=== PATIENT | male | born 1970 | race Caucasian/White ===

== ENCOUNTER 2022-07-05 09:00 | Outpatient (CLI) | payer BC, SELFPAY ==
[2022-07-05 15:43] LABS: Chloride* 108 mmol/L (96-114)
[2022-07-05 15:46] LABS: Calcium* 9.5 mg/dL (8.4-10.6); Creatinine* 0.7 mg/dL (0.5-1.5); Estimated Glomerular Filt Rate 112 ml/min
[2022-07-05 15:57] LABS: Potassium* 4.1 mmol/L (3.6-5.1); Sodium* 142 mmol/L (135-149)
[2022-07-05 16:00] LABS: Glucose* 184 mg/dL (60-115)
[2022-07-05 16:08] LABS: Blood Urea Nitrogen* 16 mg/dL (7-30); Carbon Dioxide* 23 mmol/L (20-32)
[2022-07-08 11:43] LABS: Testosterone, Adult Male 426 ng/dL (300-890)
== END 2022-07-05 09:01 | disposition home or self-care (01) ==
PROVIDERS: PCP Family Medicine; Visit Provider Family Medicine
DX: E10.9 Type 1 diabetes mellitus without complications (principal); R79.89 Other specified abnormal findings of blood chemistry; I10 Essential (primary) hypertension; E23.0 Hypopituitarism
CPT/HCPCS: 80048; 84403

== ENCOUNTER 2022-12-13 12:13 | Outpatient (CLI) | payer BC, SELFPAY ==
[2022-12-13 16:13] LABS: Chloride* 107 mmol/L (96-114)
[2022-12-13 16:14] LABS: Potassium* 4.5 mmol/L (3.6-5.1); Sodium* 135 mmol/L (135-149)
[2022-12-13 16:16] LABS: Alanine Aminotransferase* 26 U/L (4-50); Carbon Dioxide* 18 mmol/L (20-32); Cholesterol* 235 mg/dL (90-199); Creatinine* 0.8 mg/dL (0.5-1.5); Estimated Glomerular Filt Rate 107 ml/min
[2022-12-13 16:17] LABS: Blood Urea Nitrogen* 16 mg/dL (7-30); Calcium* 9.8 mg/dL (8.4-10.6); Glucose* 184 mg/dL (60-115); HDL Cholesterol* 81 mg/dL (>=40); LDL Cholesterol Calculated 134 mg/dL (<100); Triglycerides* 100 mg/dL (40-149)
[2022-12-15 06:05] LABS: Testosterone, Adult Male 519 ng/dL (300-890)
== END 2022-12-13 12:14 | disposition home or self-care (01) ==
PROVIDERS: PCP Family Medicine; Visit Provider Family Medicine
DX: E78.5 Hyperlipidemia, unspecified (principal); I10 Essential (primary) hypertension; R79.89 Other specified abnormal findings of blood chemistry; F41.9 Anxiety disorder, unspecified; E10.42 Type 1 diabetes mellitus with diabetic polyneuropathy; F32.9 Major depressive disorder, single episode, unspecified
CPT/HCPCS: 80048; 80061; 84403; 84460

== ENCOUNTER 2023-11-08 12:41 | Outpatient (CLI) | payer MEDICARE, SELFPAY ==
--- OUTSIDE RECORDS SUMMARY | 2023-11-08 12:44 | XMS_ITS | Clinical Summary ---
Author Name Unknown Organization [facility] Address [place], [place] [address] Care Team Providers Care Assurance Auditor Name Role Phone Greyson Mercado MD Primary Care Provider Allergies Active Allergy Reactions Criticality Noted Date Comments Pregabalin Edema Medium 12/07/2015 BILATERAL LOWER EXTREMITIES Medications Medication Sig Dispensed Refills Start Date End Date Status DULoxetine (CYMBALTA) 60 mg Delayed-release capsule Take 60 mg by mouth once daily. 0 02/21/2020 Active fentaNYL 50 mcg/hr (DURAGESIC) 50 mcg/hr patch Apply 1 Patch on dry, clean, hairless skin every 48 hours 0 03/18/2020 Active gabapentin (NEURONTIN) 300 mg capsule Take 900 mg by mouth 4 times daily. 0 Active testosterone (ANDROGEL) 20.25 mg/1.25 gram (1.62 %) glpm transdermal gel Apply 2 pumps topically to clean, dry, intact skin of the shoulders and upper arms once daily. Do NOT apply to any other parts of the body. 0 Active aspirin (ECOTRIN) 81 mg enteric coated tablet Take 81 mg by mouth once daily with a meal. 0 Active buPROPion (WELLBUTRIN XL) 300 mg Extended-Release tablet 1 tab once daily 0 10/28/2020 Active oxyCODONE (ROXICODONE) 5 mg immediate release tablet Take 5 mg by mouth. TAKE 1 TABLET BY MOUTH TWICE DAILY NEEDED FOR PAIN 0 12/07/2020 Active amitriptyline (ELAVIL) 25 mg tabletIndications:I nsomnia, idiopathic Take 1 Tablet (25 mg) by mouth at bedtime. 90 tablet. 1 07/23/2021 Active celecoxib (CELEBREX) 200 mg capsuleIndications: Greater trochanteric bursitis of left hip Take 1 Capsule (200 mg) by mouth 2 times daily if needed for Pain. 60 Capsule 1 10/19/2021 Active escitalopram oxalate (LEXAPRO) 10 mg tablet Take 10 mg by mouth once daily. 0 2021 Active naloxone (NARCAN) 4 mg/actuation nasal spray ADMINISTER A SINGLE SPRAY OF NARCAN IN ONE NOSTRIL. REPEAT AFTER 3 MINUTES IF NO OR MINIMAL RESPONSE. 0 02/25/2022 Active traZODone (DESYREL) 100 mg tablet TAKE 1/2 TO 1 (ONE-HALF TO ONE) TABLET BY MOUTH AT BEDTIME 0 2021 Active rosuvastatin (CRESTOR) 10 mg tabletIndications:T ype 1 diabetes mellitus with diabetic polyneuropathy (HC) Take 1 Tablet (10 mg) by mouth once daily. 90 Tablet 07/04/2022 Active insulin lispro (HUMALOG; ADMELOG) 100 unit/mL injectionIndication s:Type 1 diabetes mellitus with diabetic polyneuropathy (HC) USE UP TO 60 UNITS DAILY VIA INSULIN PUMP 10 mL 0 07/14/2022 Active FreeStyle Ifeoma 2 SensorIndications:T ype 1 diabetes mellitus with diabetic polyneuropathy (HC) USE DIRECTED 6 Each 3 10/07/2022 Active FreeStyle Ifeoma 2 ReaderIndications:T ype 1 diabetes mellitus with diabetic polyneuropathy (HC) USE TO READ BLOOD SUGARS PER MANUFACTURERS DIRECTIONS 1 Each 0 11/01/2022 Active methylPREDNISolone (Medrol, Krishna,) 4 mg tabletIndications:L umbar radiculopathy Take by mouth as instructed per packaging. 21 Tablet 0 11/21/2022 Active lisinopriL (PRINIVIL; ZESTRIL) 10 mg tablet Take 10 mg by mouth once daily. 0 12/19/2022 Active durable medical equipment (DME)Indications:Sk in infection,Closed displaced fracture of proximal phalanx of left great toe, initial encounter SQUARED TOE POST OP CÉSAR HUGGINS REF: [phone] 1 Each 0 02/16/2023 Active tamsulosin (FLOMAX) 0.4 mg capsule tamsulosin 0.4 mg capsule 0 Active loperamide (IMODIUM) 2 mg capsuleIndications: Acute diarrhea TAKE 2 CAPSULES BY MOUTH WITH 1ST LOOSE STOOL, THEN 1 CAPSULE WITH EACH SUBSEQUENT LOOSE STOOL. MAX OF 8 CAPSULES PER 24 HOURS 360 Capsule 0 05/08/2023 Active Active Problems Problem Noted Date Diagnosed Date Hypoglycemia 07/22/2020 Kidney stone 07/11/2020 Foot drop, left foot 03/21/2020 Decreased sensation of leg 03/21/2020 Lumbar radiculopathy, acute 03/21/2020 Protrusion of lumbar intervertebral disc 020 Lumbar radiculopathy 03/19/2020 Passive suicidal ideations 03/28/2019 Type 1 diabetes mellitus wit h hyperglycemia, with long-term current use of insulin 09/21/2018 Gastroenteritis 09/21/2018 LLL pneumonia 07/29/2018 Hypoglycemia associated with diabetes 06/17/2018 LOC (loss of consciousness) 06/17/2018 AMADO (acute kidney injury) 05/12/2018 Syncope and collapse 05/12/2018 Chronic pain syndrome 05/12/2018 Altered mental status, unspecified 12/27/2017 Acute renal failure (ARF) 12/27/2017 Pneumonia of both lower lobes due to infectious organism 10/08/2017 SIRS (systemic inflammatory response syndrome) 1 Controlled substance agreement signed 11/23/2016 Overview: Diabetic Neuropathy - On Fentanyl, Tramadol, Oxycodone, and Gabapentin Issue of repeat prescription 11/23/2016 Moderate episode of recurrent major depressive d isorder 11/22/2016 Adhesive capsulitis of right shoulder 11/22/2016 Chronic pain syndrome 11/09/2016 Type 1 diabetes mellitus with diabetic polyneuro shakila 07/14/2015 Cognitive deficits 03/18/2015 Generalized anxiety disorder 12/29/2014 Hyperlipidemia 09/23/2013 ACP (advance care planning) 02/22/2012 Overview: Advance Care Plan Documents No Documents on File Impotence of organic origin 09/09/2007 Resolved Problems Problem Noted Date Diagnosed Date Resolved Date Severe episode of recurrent major depressive disorder, without psychotic features 03/27/2019 KIANA (generalized anxiety disorder) 03/27/2019 10/25/2022 Hypertension 04/26/2018 07/01/2018 Hypertension 06/29/2017 07/01/2018 Pneumonia of both lungs due to infectious organism 11/11/2016 02/14/2017 Sepsis, unspecified organism 11/11/2016 02/14/2017 Tachycardia 11/10/2016 11/22/2016 Hypoxia 11/10/2016 11/22/2016 Hypovolemia 11/10/2016 11/22/2016 Hypokalemia 11/10/2016 11/22/2016 Chest pain in adult 11/09/2016 02/15/20 17 Neuropathy 11/09/2016 11/22/2016 Campylobacter gastroenteritis 12/07/2015 10/08/2017 C. difficile colitis 12/06/2015 017 Pneumonia, organism unspecified(486) 12/05/2015 12/14/2015 Dehydration 12/05/2015 12/14/2015 Gastroenteritis 12/03/2015 12/14/2015 SIRS (systemic inflammatory response syndrome) 12/02/2015 12/14/2015 Major depressive disorder, r ecurrent episode, moderate 03/22/2015 11/22/2016 Diabetic polyneuropathy asso ciated with type 1 diabetes mellitus 03/22/2015 12/02/2015 Diabetic polyneuropathy asso ciated with diabetes mellitus due to underlying condition 02/02/2015 03/22/2015 Major depressive disorder, r ecurrent episode, severe, without mention of psychotic behavior 12/29/2014 03/22/2015 Other pain disorders related to psychological factors 12/29/2014 03/19/2015 Major depressive disorder, r ecurrent episode, severe, without mention of psychotic behavior 12/29/2014 11/22/2016 Diabetic neuropathy 08/28/2014 02/03/20 15 Hypoglycemia 04/20/2014 05/10/2014 DKA (diabetic ketoacidoses) 04/03/2014 03/19/2015 Atypical chest pain 04/03/2014 04/13/20 14 SOB (shortness of breath) 04/03/2014 Right flank pain 04/03/2014 04/13/2014 Hypokalemia 04/03/2014 04/13/2014 Medical Home 01/05/2012 03/02/2012 DIABETES MELLITUS TYPE I 09/08/199808/2015 Type I (juvenile type) diabe josé manuel mellitus without mention of complication, not stated as uncontrolled 09/08/1998 11/22/2016 Immunizations Name Administration Dates Next Due COVID-19 vaccine ([place] 30mcg/0.3mL) PF, MDV 08/23/2021,07/23/2021 DTaP 06/20/1977 Influenza Virus, Unspecified 07/07/2020 Influenza, IIV4 07/23/2021, 9,07/02/2018,2016,11/07/2016 Influenza, IIV4 (=>6mos) MDV 07/23/2020 MMR 05/24/1977 Oral Polio Vaccine 06/20/1977 Tdap 03/18/2011 Family History Medical History Relation Name Comments Good Health Father Good Health Mother Relation Name Status Comments Father Alive Mother Alive Social History Tobacco Use Types Packs/Day Years Used Date Smoking Tobacco: Never Smokeless Tobacco: Never Tobacco Cessation:Counseling Given: Yes Alcohol Use Standard Drinks/Week Comments No 0 (1 standard drink = 0.6 oz pur e alcohol) PHQ-2 Answer Date Recorded PHQ-2 TOTAL SCORE 4 09/05/2022 Social Connections Answer Date Recorded Frequency of Communication with Friends and Fami ly 0 01/27/2023 Financial Resource Strain Answer Date R ecorded Difficulty of Paying Living Expenses 3 01/27/2023 Difficulty of Paying Living Expenses Not on file 01/27/2023 Food Insecurity Answer Date Recorded Worried About Running Out of Food in the Last Ye ar 1 01/27/2023 Transportation Needs Answer Date Record ed Lack of Transportation (Medical) 1 01/27/2023 Housing Stability Answer Date Recorded Unable to Pay for Housing in the Last Year 1 01/27/2023 Sex and Gender Information Value Date Recorded Sex Assigned at Not on file Gender Identity Not on file Sexual Orientation Not on file Obstetrics History Last Filed Vital Signs Vital Sign Reading Time Taken Comments Blood Pressure 135/88 02/14/2023 6:38 PM CDT Pulse 80 04/27/2023 11:50 AM CDT Temperature 37.3 ??C (99.1 ??F) 02/14/2023 4:03 PM CD T Respiratory Rate 20 02/14/2023 4:03 PM CDT Oxygen Saturation 97% 04/27/2023 11:50 AM CDT Inhaled Oxygen Concentration - - Weight 83.6 kg (184 lb 3.2 oz) 04/27/2023 11:50 AM CDT Height 175.3 cm (5' 9) 07/14/2022 8:07 PM CDT Body Mass Index 27.2 07/14/2022 8:07 PM CDT Plan of Treatment Health Maintenance Due Date Last Done Comments Hepatitis B series for Diabe josé manuel (1 of 3 - 3-dose series) 1971 Pneumococcal series for age 6-64 (1 of 2 - PCV) 1977 HIV for age 15-65 1986 Hepatitis C screening for ag e 18-79 1989 Colonoscopy through age 75 2016 Tetanus booster 03/18/2021 03/18/2011, 03/18/2011 Zoster (shingles) series for age 50+ (1 of 2) 2021 COVID-19 vaccine series (3 - 2022- season) 2023 08/23/2021, 07/23/2021 Influenza for age 50-64 06/09/2023 07/23/20 21, 07/23/2020, 07/07/2020, Additional history exists BMI (ht and wt on same day) for age 18+ 07/04/2023 07/04/2022, 07/23/2021, 11/27/2020, Additional history exists Depression screening for age 12+ 09/05/2023 09/05/2022, 08/10/2022, 07/04/2022, Additional history exists Lipids for age 45-75 07/04/2027 07/04/2022, 01/07/2021, 12/31/2018, Additional history exists Tdap Completed 03/18/2011 Medical Devices Implanted Type Area Studio Set Up Worker Device Identifier Shelf Expiration Date Model / Serial / Lot Stent Uret [id number] Percuflex Hydroplus - [id number] Implanted:Qty: 1 on 07/23/2020 by Hunter Sandoval MD at [facility] Right: Ureter [facility] 05/07/2023 [id number] / / [id number] Explanted Type Area Studio Set Up Worker Device Identifier Shelf Expiration Date Model / Serial / Lot Stent Uret [id number] Percuflex Hydroplus - [id number] Implanted:Qty: 1 on 07/11/2020 by Hunter Sandoval MD at [facility] Explanted:Qty: 1 on 07/23/2020 by Hunter Sandoval MD at [facility] Right: Ureter [facility] 02/03/2023 [id number]# / / [id number] Advance Directives Documents on File Type Date Recorded Patient Regulatory Attorney Expl anation Healthcare Directive 06/19/2018 9:27 AM Latest Code Status on File Code Status Date Activated Date Inactivated Comments Full Code 07/22/2020 1:58 AM 07/23/2020 9:03 PM Question Answer Comments Code Status Discussion: Discussed Code Status History Code Status Date Activated Date Inactivated Comments Full Code 07/11/2020 1:07 AM 07/12/2020 4:51 PM Question Answer Comments Code Status Discussion: Discussed Full Code 03/21/2020 2:37 PM 03/23/2020 8:30 PM Question Answer Comments Code Status Discussion: Discussed Full Code 03/19/2020 2:19 PM 03/21/2020 1:24 PM Full Code 03/28/2019 10:39 AM 04/02/2019 4:25 PM Question Answer Comments Code Status Discussion: Not Discussed Care Teams Assurance Auditor Relationship Specialty Start Date End Date Greyson Mercado MD [address] [facility] [place] [address] PCP - General Family Practice 09/28/18
--- OUTSIDE RECORDS SUMMARY | 2023-11-08 12:44 | XMS_ITS | Continuity of Care Document ---
Author Name Unknown Organization [facility] Address [address] [place] [address] Phone Care Team Providers Care Print Developer Automatic Name Role Phone Reji Zendejas MD Unavailable Unavailable Allergies, Adverse Reactions, Alerts Substance Reaction Status Criticality pregabalin Nausea Active No Information Medications Medication Instructions Dosage Effective Dates (start - stop) Status Comments TYLENOL (unknown strength) Not Available - Active IBUPROFEN (unknown strength) Not Available - Active Procedures Procedure Date Office/Outpatient Visit,Est, Mod 2020 Office/Outpatient Visit,Est, Mod 2020 Office/Outpatient Visit,Est, Mod 2020 X-Ray Exam Lower Spine 2-3 Views 2020 Office/Outpatient Visit,Est, Mod 2019 Postop Followup Visit X-Ray Exam Lower Spine 2-3 Views 2019 Lami/Discectomy, Lumbar HNP Advance Directives Directive Yes / No Effective Date File Name No Information Encounters Encounter Description Practice Location Reason(s) For Visit Diagnoses Date Provider Providers Copied on Encounter [facility], [address], [place], [place], [id number], [place] tel:[phone] [facility] No Information 1 Aashish Mendoza. [facility], [address], [address], [place], [place], [id number] , [place]. [phone] Office/Outpat ient Visit,Est, Mod [facility], [address], [place], [place], [id number], [place] tel:[phone] [facility] Radiculopathy, lumbar region 1 Aashish Mendoza. [facility], [address] [place] [address], [address], [facility], [place], [id number] , [place]. tel:[phone] Referring Provider: Reji Zendejas, [facility] [address], [address], [place], [address] . tel:[phone] Office/Outpat ient Visit,Est, Mod [facility], [address], [place], [id number], [place] tel:[phone] [facility] Spondylolisthes is, lumbar regionOther intervertebral disc displacement, lumbar regionWeakness February- 1 Aashish Mendoza. [facility], [address] [place] [address], [address], [place], [place], [id number] , [place]. [phone] Referring Provider: Reji Zendejas, [facility] [address] [place] [address], [address], [place], [address] . tel:[phone] Office/Outpat ient Visit,Est, Mod [facility], [address], [place], [address], [place] tel:[phone] [facility] Other intervertebral disc displacement, lumbar regionWeaknessS pondylolisthesi s, lumbar region Fe- 1 Bradly Gregorio. [facility], [address] [place] [address] [address], [facility] [place], [id number] , [place]. tel:[phone] Referring Provider: Reji Zendejas, [facility] [address] [place] [address], [address], [place], [address] . tel:[phone] Office/Outpat ient Visit,Est, Mod [facility], [address], [place], [address], [place] tel:[phone] [facility] Other intervertebral disc displacement, lumbar regionRadiculop athy, lumbar regionOther intervertebral disc displacement, lumbar region Oct- 0 Aashish Mendoza. [facility], [address], [address], [place], [place], [id number] , [place]. tel:[phone] Referring Provider: Reji Edwardo, [facility] [address], [address], [facility] [place], [address] . tel:[phone] [facility], [address], [facility] [place], [address], [place] tel:[phone] [facility] Other intervertebral disc displacement, lumbar regionRadiculop athy, lumbar regionWeakness 0 Aashish Mendoza. [facility] [place], [address], [address], [place], [place], [address] , [place]. [phone] Referring Provider: Reji Zendejas, [facility] [address], [address], [facility] [place], [address] . tel:[phone] [facility], [address], [facility] [place], [address], [place] tel:[phone] [facility] No Information 0 Aashish Mendoza. [facility], [address], [address], [place], [place], [address] , [place]. [phone] Referring Provider: Reji Zendejas, [facility] [place] [address], [address], [place], [address] . tel:[phone] Family History Family Member Type Diagnosis Age At Onset No Information Payers Payer name Insurance type Covered green party ID Jeny blas(s) [place] [employer] [facility] [id number] Social History Type Description Quantity Date Captured Comments Sex Male Smoking Status No Information Chief Complaint And Reason For Visit No Information Reason For Referral Reason For Referral No Information History Of Present Illness Encounter Date Complaint History Of Prese nt Illness No Information Functional Status Date Functional Assessmen t No Information Instructions Date Instruction Additional Infor mation No Information Assessments Type Assessment Date No Information Patient Care Teams Name Effective Dates (start - stop) Status Members No Information
== END 2023-11-08 12:42 | disposition home or self-care (01) ==
PROVIDERS: PCP Family Medicine; Visit Provider Family Medicine
DX: E10.42 Type 1 diabetes mellitus with diabetic polyneuropathy (principal); Z79.4 Long term (current) use of insulin; Z96.41 Presence of insulin pump (external) (internal); E78.2 Mixed hyperlipidemia
CPT/HCPCS: 80048; 80061; 84460

== ENCOUNTER 2023-12-14 08:35 | Outpatient (CLI) | payer MEDICAID, SELFPAY | END 2023-12-14 08:36 | disposition home or self-care (01) | LOC: NFLDREF 12-18 06:21 | PROVIDERS: PCP Family Medicine; Referring Provider Family Medicine; Visit Provider Family Medicine | DX: R79.89 Other specified abnormal findings of blood chemistry (principal) | CPT/HCPCS: 84403 ==

== ENCOUNTER 2024-09-27 12:37 | Outpatient (CLI) | payer MEDICARE, SELFPAY | END 2024-09-27 12:38 | disposition home or self-care (01) | PROVIDERS: PCP Family Medicine; Visit Provider Family Medicine | DX: E78.2 Mixed hyperlipidemia (principal); I10 Essential (primary) hypertension; E10.42 Type 1 diabetes mellitus with diabetic polyneuropathy; R79.89 Other specified abnormal findings of blood chemistry; F41.1 Generalized anxiety disorder | CPT/HCPCS: 80048; 80061; 84460; 85025 ==

== ENCOUNTER 2025-01-21 08:36 | Outpatient (CLI) | payer MEDICARE, SELFPAY | END 2025-01-21 08:37 | disposition home or self-care (01) | LOC: NFLDREF 01-24 15:55 | PROVIDERS: PCP Family Medicine; Referring Provider Family Medicine; Visit Provider Family Medicine | DX: E10.42 Type 1 diabetes mellitus with diabetic polyneuropathy (principal) | CPT/HCPCS: 84681 ==